=== PATIENT | female | born 1975 | race American Indian/Alaskan Native ===

== ENCOUNTER 2017-06-26 02:28 | Emergency (ER) | payer MEDICAID ==
[2017-06-26 03:18] VITALS: BP 143/90
== END 2017-06-26 05:30 | disposition left against medical advice (07) ==
LOC: ED 02:28
DX: R11.2 Nausea with vomiting, unspecified (principal); Z53.21 Procedure and treatment not carried out due to patient leaving prior to being seen by health care provider

== ENCOUNTER 2018-08-18 20:00 | Emergency (ER) | payer MEDICAID, OTHER ==
--- NOTE | 2018-08-18 20:36 | Emergency Department Report ---
Chief Complaint: High BP Stated Complaint: HBP/HEADACHE Time Seen by Provider: 08/18/18 20:32 - HPI History of Present Illness: Pt is c/o OMALLEY to both temples that began today Pt states pressure was elevated when she used an at home cuff no numbness, no unilateral weakness, no vision changes, no N/V chronic tingling in the bilateral hands, followed by neurology Pt has been out of her BP medication for the last two weeks she states she is on amlodipine 10 mg and hctz 25 mg MSE complete MSE screening note: Focused history and physical exam performed. ED Disposition for MSE Condition: Stable
[2018-08-18 21:02] LABS: Basophils # (Auto) 0.1 K/mm3 (0.0-0.1); Basophils % (Auto) 0.9 % (0.0-1.8); Eosinophils # (Auto) 0.2 K/mm3 (0.0-0.4); Eosinophils % (Auto) 2.7 % (0.0-4.3); Hematocrit 40.3 % (30.3-42.9); Hemoglobin 13.9 gm/dl (10.1-14.3); Lymphocytes # (Auto) 2.5 K/mm3 (1.2-5.4); Lymphocytes % (Auto) 28.5 % (13.4-35.0); Mean Corpuscular HGB Conc 35 % (30-34); Mean Corpuscular Volume 97 fl (79-97); Monocytes # (Auto) 0.7 K/mm3 (0.0-0.8); Monocytes % (Auto) 8.3 % (0.0-7.3); Platelet Count 292 K/mm3 (140-440); Red Blood Count 4.18 M/mm3 (3.65-5.03); Red Cell Distribution Width 13.6 % (13.2-15.2)
[2018-08-18 21:14] LABS: BUN/Creatinine Ratio 22; Blood Urea Nitrogen 13 mg/dL (7-17); Calcium 8.9 mg/dL (8.4-10.2); Hemolysis Index 10
[2018-08-18] MEDS ORDERED: NORVASC PO ONE (21:23)
[2018-08-18] MEDS ORDERED: IBUPROFEN PO ONE (21:23)
--- NOTE | 2018-08-18 21:35 | Emergency Department Report ---
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 She has a throbbing, squeezing headache to the front and middle of her head. She denies any blurry vision but has some photosensitivity/photophobia. She does have a history of migraine headaches and while she says that this is not necessarily consistent with a migraine, she does say that this is what her head feels like when her blood pressure is elevated. She says she has not had any blood pressure medications for the past 2 weeks that she has not been able to get into a primary care physician and get refills. She is on hydrochlorothiazide and amlodipine. She tried home remedies for her headache without any relief. Her primary care physician is a Dr. Jerry. She denies any tobacco or illicit drug use or abuse. ED Past Medical Hx - Past Medical History Hx Hypertension: Yes Hx Headaches / Migraines: Yes Hx Asthma: Yes - Surgical History Additional Surgical History: tubal ligation - Social History Smoking Status: Never Smoker Substance Use Type: None, Marijuana - Medications Home Medications: Home Medications Medication Instructions Recorded Confirmed Last Taken Type Ibuprofen [Motrin] 800 mg PO TID PRN #30 tablet 09/30/14 Unknown Rx Promethazine /Codeine 5 ml PO QHS PRN #1 udc 09/30/14 Unknown Rx [Phenergan/Codeine 6.25-10 mg/5Ml] amLODIPine [Norvasc] 10 mg PO DAILY #30 tablet 08/18/18 Unknown Rx hydroCHLOROthiazide [HCTZ] 25 mg PO DAILY #30 tablet 08/18/18 Unknown Rx ED Review of Systems ROS: Stated complaint: HBP/HEADACHE Other details as noted in HPI Comment: All other systems reviewed and negative Constitutional: denies: chills, fever Eyes: other (photophobia). denies: eye pain Respiratory: denies: cough, shortness of breath Cardiovascular: denies: chest pain, palpitations Gastrointestinal: denies: abdominal pain, vomiting Genitourinary: denies: dysuria, discharge Musculoskeletal: denies: back pain, arthralgia Skin: denies: rash, lesions Neurological: headache. denies: weakness, numbness Physical Exam - Physical Exam Vital Signs: Vital Signs 08/18/18 08/18/18 20:35 21:22 Temperature 98.2 F 98.2 F Pulse Rate 94 H 76 Respiratory 18 16 Rate Blood Pressure 194/114 Blood Pressure 166/76 [Left] O2 Sat by Pulse 99 100 Oximetry Physical Exam: GENERAL: The patient is well-developed well-nourished. HEENT: Normocephalic. Atraumatic. Patient has moist mucous membranes. EYES: Extraocular motions are intact. Pupils are equal and reactive to light bilaterally. No nystagmus. NECK: Supple. Trachea is midline. CHEST/LUNGS: Clear to auscultation. There is no respiratory distress noted. HEART/CARDIOVASCULAR: Regular. There is no tachycardia. There is no obvious murmur. ABDOMEN: Abdomen is soft, nontender. Patient has normal bowel sounds. There is no abdominal distention. SKIN: Skin is warm and dry. NEURO: The patient is awake, alert, and oriented. The patient is cooperative. The patient has no focal neurologic deficits. The patient has normal speech. Cranial nerves II through XII grossly intact. No pronator drift. No dysmetria. MUSCULOSKELETAL: There is no tenderness or deformity. There is no limitation range of motion. There is no evidence of acute injury. ED Course Vital Signs 08/18/18 08/18/18 20:35 21:22 Temperature 98.2 F 98.2 F Pulse Rate 94 H 76 Respiratory 18 16 Rate Blood Pressure 194/114 Blood Pressure 166/76 [Left] O2 Sat by Pulse 99 100 Oximetry ED Medical Decision Making - Lab Data Result diagrams: 08/18/18 20:43 08/18/18 20:43 - Medical Decision Making This patient presents to the emergency department with hypertension and a headache. She has been without her amlodipine and hydrochlorothiazide for a couple of weeks. She says that the headache feels like she has elevated blood pressure. She has no focal, motor or sensory deficits in her cranial nerves are intact. Labs have been unremarkable including a CBC and metabolic panel. Patient was given a dose of her Norvasc and a dose of ibuprofen. She was reevaluated multiple times for multiple hours and has greatly improved. The headache has resolved and her blood pressure has come down. For all these r easons, I did not feel that CT imaging of the head was necessary at this time. Prior to discharge, the patient was seen ambulatory throughout the emergency department and both appears and feels stable. She will be given a prescription for her blood pressure medications and has been given multiple referrals for primary care clinics. She will return to the ER for new worsening of her symptoms or any acute distress. - Differential Diagnosis migraine headache, tension headache, cluster headache Critical Care Time: No Critical care attestation.: If time is entered above; I have spent that time in minutes in the direct care of this critically ill patient, excluding procedure time. ED Disposition Clinical Impression: Noncompliance with medication regimen Hypertension Qualifiers: Hypertension type: essential hypertension Qualified Code(s): I10 - Essential (primary) hypertension Headache Qualifiers: Headache type: unspecified Headache chronicity pattern: unspecified pattern Intractability: not intractable Qualified Code(s): R51 - Headache Disposition: DC-01 TO HOME OR SELFCARE Is pt being admited?: No Condition: Stable Instructions: Acute Headache (ED), Hypertension (ED) Additional Instructions: Please follow up with a primary care physician. Restart your blood pressure medications. Try and stay away from foods that are high in salt and caffeinated products to help with her blood pressure. Keep a blood pressure log. Return to the emergency Department with any worsening of your symptoms or any acute distress. Prescriptions: amLODIPine [Norvasc] 10 mg PO DAILY #30 tablet hydroCHLOROthiazide [HCTZ] 25 mg PO DAILY #30 tablet Referrals: [facility] [Outside] - 3-5 Days [facility] [Outside] - 3-5 Days [facility] [Outside] - 3-5 Days [facility] [Outside] - 3-5 Days Time of Disposition: 23:52
[2018-08-18 23:50] VITALS: BP 130/69
== END 2018-08-19 00:07 | disposition home or self-care (01) ==
LOC: ED 20:00
DX: G43.909 Migraine, unspecified, not intractable, without status migrainosus (principal); I10 Essential (primary) hypertension; J45.909 Unspecified asthma, uncomplicated; F12.10 Cannabis abuse, uncomplicated; Z98.51 Tubal ligation status; Z88.8 Allergy status to other drugs, medicaments and biological substances
CPT/HCPCS: 36415; 80048; 85025; 99283

== ENCOUNTER 2019-04-26 18:39 | Emergency (ER) | payer SELFPAY ==
[2019-04-26] MEDS ORDERED: methylPREDNISolone Sod Succinate 125 MG/2 ML INJ IV ONE (21:59)
[2019-04-26] MEDS ORDERED: IPRATROPIUM 0.02% NEBU 2.5 ML IH ONE (21:59)
[2019-04-26] MEDS ORDERED: KETOROLAC 30 MG/1 ML INJ IV ONE (21:59)
[2019-04-26] MEDS ORDERED: ALBUTEROL 2.5 MG/3 ML NEBU IH ONE (21:59)
[2019-04-26] MEDS ORDERED: SODIUM CHLORIDE 0.9% 500 ML 500 ML IV ONE (22:00)
--- NOTE | 2019-04-26 22:02 | Emergency Department Report ---
ED General Adult HPI - General Chief complaint: Upper Respiratory Infection Stated complaint: CONGESTION/COUGH/MICHELLE Time Seen by Provider: 04/26/19 21:49 Source: patient, RN notes reviewed, old records reviewed Mode of arrival: Ambulatory Limitations: No Limitations - History of Present Illness Initial comments: This is a 43-year-old female. This patient is not known to this provider previously. She states that she cannot recall the name of her primary care doctor. She has a history of hypertension and asthma with no history of intubations or hospitalizations for asthma. She reports that she is not and has not delivered her given within the past 6 weeks. She states she has not smoked cigarettes for 3 weeks. She does have occasional exposure to secondhand cigarettes. The patient presents to the ER with a complaint of cough, wheezing, back pain, chest wall pain, shortness of breath, and clear mucous production. Cough and shortness of breath present for the past 3-4 days. Chest wall pain, flank pain and back pain is anterior, lateral, posterior, throbbing, intermittent, worsens with palpation, decreases with rest and range of motion, and does not radiate anywhere. It is present for about the past 24 hours. The patient denies DVT and pulmonary embolism risk factors. -: Gradual, days(s) Location: chest, back Quality: aching Improves with: other Worsens with: rest - Related Data Previous Rx's Medication Instructions Recorded Last Taken Type Ibuprofen [Motrin] 800 mg PO TID PRN #30 tablet 09/30/14 Unknown Rx Promethazine /Codeine 5 ml PO QHS PRN #1 udc 09/30/14 Unknown Rx [Phenergan/Codeine 6.25-10 mg/5Ml] amLODIPine 10 mg PO DAILY #30 tablet 08/18/18 Unknown Rx hydroCHLOROthiazide [HCTZ] 25 mg PO DAILY #30 tablet 08/18/18 Unknown Rx Albuterol Sulfate [Albuterol 0.63% 0.63 mg IH Q4HR PRN #2 ml 04/27/19 Unknown Rx NEBS] Albuterol Sulfate [Proair 90 mcg IH Q4HR PRN #2 aer.[email or web address] 04/27/19 Unknown Rx Respiclick] predniSONE [Deltasone] 40 mg PO QDAY #8 tab 04/27/19 Unknown Rx Allergies Allergy/AdvReac Type Severity Reaction Status Date / Time sumatriptan [From Imitrex] Allergy Rash Verified 11/20/13 15:25 sumatriptan succinate Allergy Rash Verified 11/20/13 15:25 [From Imitrex] ED Review of Systems ROS: Stated complaint: CONGESTION/COUGH/MICHELLE Other details as noted in HPI Constitutional: denies: fever Eyes: denies: eye discharge ENT: congestion Respiratory: cough, shortness of breath, wheezing Cardiovascular: denies: syncope Genitourinary: denies: urgency, dysuria Musculoskeletal: myalgia Skin: denies: lesions Neurological: weakness Psychiatric: anxiety ED Past Medical Hx - Past Medical History Hx Hypertension: Yes Hx Headaches / Migraines: Yes Hx Asthma: Yes - Surgical History Additional Surgical History: tubal ligation - Social History Smoking Status: Never Smoker Substance Use Type: None, Marijuana - Medications Home Medications: Home Medications Medication Instructions Recorded Confirmed Last Taken Type Ibuprofen [Motrin] 800 mg PO TID PRN #30 tablet 09/30/14 Unknown Rx Promethazine /Codeine 5 ml PO QHS PRN #1 udc 09/30/14 Unknown Rx [Phenergan/Codeine 6.25-10 mg/5Ml] amLODIPine 10 mg PO DAILY #30 tablet 08/18/18 Unknown Rx hydroCHLOROthiazide [HCTZ] 25 mg PO DAILY #30 tablet 08/18/18 Unknown Rx Albuterol Sulfate [Albuterol 0.63% 0.63 mg IH Q4HR PRN #2 ml 04/27/19 Unknown Rx NEBS] Albuterol Sulfate [Proair 90 mcg IH Q4HR PRN #2 aer.pow.ba 04/27/19 Unknown Rx Respiclick] predniSONE [Deltasone] 40 mg PO QDAY #8 tab 04/27/19 Unknown Rx ED Physical Exam - General Limitations: No Limitations General appearance: alert, in no apparent distress - Head Head exam: Present: atraumatic, normocephalic - Eye Eye exam: Present: normal appearance, EOMI. Absent: nystagmus - ENT ENT exam: Present: normal exam, normal orophraynx, mucous membranes moist, normal external ear exam - Neck Neck exam: Present: normal inspection, full ROM. Absent: tenderness, meningismus - Respiratory Respiratory exam: Present: respiratory distress, wheezes, rhonchi, chest wall tenderness - Cardiovascular Cardiovascular Exam: Present: regular rate, normal rhythm, normal heart sounds. Absent: bradycardia, tachycardia, irregular rhythm, systolic murmur, diastolic murmur, rubs, gallop - GI/Abdominal GI/Abdominal exam: Present: soft. Absent: distended, tenderness, guarding, rebound, rigid, pulsatile mass - Extremities Exam Extremities exam: Present: normal inspection, full ROM, other (2+ pulses noted in the bilateral upper, lower extremities. There is no long bone tenderness. Musculoskeletal compartments are soft. The pelvis is stable.). Absent: pedal edema, calf tenderness - Back Exam Back exam: Present: normal inspection. Absent: tenderness, CVA tenderness (R), CVA tenderness (L), paraspinal tenderness, vertebral tenderness - Neurological Exam Neurological exam: Present: alert, oriented X3, other (there is no facial droop. The tongue is midline. Extraocular movements are intact bilaterally. Patient speaking in full complete sentences. Shoulder shrug is intact bilaterally. Hearing is grossly intact bilaterally. Visual acuity intact to finger counting and color perception at a close distance. 5/5 strength 4 extremities. Sensation intact to light touch in 4 extremities.). Absent: motor sensory deficit - Psychiatric Psychiatric exam: Present: normal affect, normal mood - Skin Skin exam: Present: warm, dry, intact, normal color. Absent: rash ED Course Vital Signs 04/26/19 04/26/19 04/26/19 19:14 22:30 22:37 Temperature 98.4 F Pulse Rate 78 70 Pulse Rate [ 62 Bilateral] Respiratory 18 15 Rate Respiratory 27 H Rate [Bilateral ] Blood Pressure 170/100 143/78 O2 Sat by Pulse 99 99 Oximetry - Reevaluation(s) Reevaluation #1: 04/26/19 22:20 Differential diagnosis, including not limited to: Chest wall pain, thoracic pain, muscular back pain, bronchitis, costochondritis, pneumonia, reactive airway disease Assessment and plan: 43-year-old female with reproducible muscular pain, not tachycardic, not tachypneic, not hypoxic, no pulmonary embolism or DVT risk factors, low risk by well's criteria, perc negative with cough, wheezing, shortness of breath, likely experiencing bronchitis. We will treat her with albuterol, Atrovent, steroids, pain medicine, EKG unremarkable, x-ray the chest is pending. Reevaluation #2: 04/27/19 00:29 The patient is reassessed multiple times. She feels improved. Wheezing has essentially resolved. She is speaking to a business solution analyst in her room, and appears to be quite comfortable. ED Medical Decision Making - Lab Data Vital Signs 04/26/19 19:14 Temperature 98.4 F Pulse Rate 78 Respiratory 18 Rate Blood Pressure 170/100 O2 Sat by Pulse 99 Oximetry - EKG Data -: EKG Interpreted by Me EKG shows normal: sinus rhythm Rate: normal - EKG Data 04/26/19 22:22 The EKG shows a sinus arrhythmia, some 99 bpm, motion artifact, QTC is 445 ms, the EKG is not consistent with ST elevation myocardial infarction. - Radiology Data Radiology results: pending, report reviewed, image reviewed X-ray the chest is negative for acute disease. Critical care attestation.: If time is entered above; I have spent that time in minutes in the direct care of this critically ill patient, excluding procedure time. ED Disposition Clinical Impression: Bronchitis Disposition: DC-01 TO HOME OR SELFCARE Is pt being admited?: No Does the pt Need Aspirin: No Condition: Stable Instructions: Acute Bronchitis (ED) Additional Instructions: As we discussed, patient likely has bronchitis. Symptoms of bronchitis may last anywhere from a few days to a few weeks. Bronchitis is typically not dangerous or life-threatening. It typically self resolves. Recommend avoidance of exposure to tobacco and smoke products. Take the breathing medications as needed and directed. Patient may take [id number] Tylenol, 650 mg with food, every 4-6 hours, alternating with Motrin, 600 mg with food, every 6 hours as needed for pain. Follow-up with a primary care doctor within the next month. Take the breathing medications as directed, cough medication and steroids as directed. Patient may also purchase [id number] Flonase, and uses directed on the bottle, to assist with symptoms of nasal congestion. Return to the emergency room right away with new, worsened, different symptoms, or symptoms not present on the initial emergency room evaluation. Referrals: [facility] [Provider Group] - 3-5 Days [facility] [Provider Group] - 3-5 Days
[2019-04-26] MEDS ORDERED: MAGNESIUM SULFATE 2 GM/50 ML BAG IV ONE (22:21)
--- NOTE | 2019-04-26 22:37 | XRay Report ---
CHEST 2 VIEWS INDICATION / CLINICAL INFORMATION: back pain chest wal pain cough sob. COMPARISON: None available. FINDINGS: SUPPORT DEVICES: None. HEART / MEDIASTINUM: No significant abnormality. LUNGS / PLEURA: No significant pulmonary or pleural abnormality. No pneumothorax. ADDITIONAL FINDINGS: No significant additional findings. IMPRESSION: 1. No acute findings. No evidence of pneumonia. Signer Name: Xin Doe MD Signed: 04/26/2019 10:33 PM Workstation Name: [id number]
[2019-04-27 00:59] VITALS: BP 150/75
== END 2019-04-27 01:25 | disposition home or self-care (01) ==
LOC: ED 18:39
DX: J40 Bronchitis, not specified as acute or chronic (principal); G43.909 Migraine, unspecified, not intractable, without status migrainosus; I10 Essential (primary) hypertension; F12.10 Cannabis abuse, uncomplicated; Z98.51 Tubal ligation status; Z88.8 Allergy status to other drugs, medicaments and biological substances
CPT/HCPCS: 71046; 93005; 93010; 94644; 96365; 96375; 99283; J1885; J2930; J3475; J7040

== ENCOUNTER 2019-07-08 07:57 | Emergency (ER) | payer SELFPAY ==
--- NOTE | 2019-07-08 10:25 | XRay Report ---
CHEST 1 VIEW INDICATION: Chest Pain. COMPARISON: 04/26/2019 FINDINGS: Support devices: None. Heart: Within normal limits. Lungs/Pleura: No acute air space or interstitial disease. Additional findings: None. IMPRESSION: Normal AP chest Signer Name: Gregory Read Jr, MD Signed: 07/08/2019 10:20 AM Workstation Name: [id number]
[2019-07-08] MEDS ORDERED: IPRATROPIUM 0.02% NEBU 2.5 ML IH ONE (10:34)
[2019-07-08] MEDS ORDERED: ALBUTEROL 2.5 MG/3 ML NEBU IH ONE (10:34)
[2019-07-08] MEDS ORDERED: predniSONE 20 MG TAB PO ONE (10:34)
[2019-07-08] MEDS ORDERED: IBUPROFEN 800 MG TAB PO ONE (10:35)
[2019-07-08] MEDS ORDERED: BENZONATATE 100 MG CAP PO ONE (10:35)
--- NOTE | 2019-07-08 11:05 | Emergency Department Report ---
- General Chief Complaint: Upper Respiratory Infection Stated Complaint: BODY PAIN/BAD COUGH/MICHELLE Time Seen by Provider: 07/08/19 10:33 Source: EMS Mode of arrival: Ambulatory Limitations: No Limitations - History of Present Illness Initial Comments: This is a 43-year-old female nontoxic, well nourished in appearance, no acute signs of distress presents to the ED with c/o of productive cough, fever, chills, body aches, rhinorrhea, nasal congestion x2 days. Patient stated has wheezing that causes SOB. Patient describes productive cough as yellow mucus production. Patient denies any sick contact. Patient denies any recent travels, long car, recent hospital stays. Patient denies any calf pain or calf tenderness. Patient denies any chest pain, nausea, vomiting, hemoptysis, numbness, tingling, headache or stiff neck. Patient stated allergies to Bactrim with no significant past medical history. MD Complaint: cough, rhinorrhea, nasal congestion, other (wheezing, SOB) -: days(s) (2) Consistency: constant Improves With: nothing Worsens With: nothing Associated Symptoms: fever, chills, rhinorrhea, nasal congestion, cough, shortness of breath. denies: myalgias, diaphoresis, headache, sore throat, stiff neck, chest pain, abdominal pain, nausea, vomiting, diarrhea, dysuria, rash, confusion, right sweats, weight loss, epistaxis, hoarseness, ear pain Treatments Prior to Arrival: none - Related Data Previous Rx's Medication Instructions Recorded Last Taken Type Ibuprofen [Motrin] 800 mg PO TID PRN #30 tablet 09/30/14 Unknown Rx Promethazine /Codeine 5 ml PO QHS PRN #1 udc 09/30/14 Unknown Rx [Phenergan/Codeine 6.25-10 mg/5Ml] amLODIPine 10 mg PO DAILY #30 tablet 08/18/18 Unknown Rx hydroCHLOROthiazide [HCTZ] 25 mg PO DAILY #30 tablet 08/18/18 Unknown Rx Albuterol Sulfate [Albuterol 0.63% 0.63 mg IH Q4HR PRN #2 ml 04/27/19 Unknown Rx NEBS] Albuterol Sulfate [Proair 90 mcg IH Q4HR PRN #2 aer.pow.ba 04/27/19 Unknown Rx Respiclick] Benzonatate [Tessalon Perles] 100 mg PO Q8HR PRN #30 capsule 04/27/19 Unknown Rx Fluticasone [Flonase] 1 spray NS QDAY #1 bottle 04/27/19 Unknown Rx predniSONE [Deltasone] 40 mg PO QDAY #8 tab 04/27/19 Unknown Rx Albuterol INH(or & Nicu Only) 2 puff IH QID PRN #8.5 gram 07/08/19 Unknown Rx [ProAir HFA Inhaler] Benzonatate [Tessalon Perles] 100 mg PO Q8HR PRN #20 capsule 07/08/19 Unknown Rx Ibuprofen [Motrin] 600 mg PO Q8H PRN #20 tablet 07/08/19 Unknown Rx Oseltamivir [Tamiflu] 75 mg PO BID #14 cap 07/08/19 Unknown Rx Allergies Allergy/AdvReac Type Severity Reaction Status Date / Time sumatriptan [From Imitrex] Allergy Rash Verified 11/20/13 15:25 sumatriptan succinate Allergy Rash Verified 11/20/13 15:25 [From Imitrex] ED Review of Systems ROS: Stated complaint: BODY PAIN/BAD COUGH/MICHELLE Other details as noted in HPI Constitutional: chills, fever Eyes: denies: eye pain, eye discharge, vision change ENT: congestion. denies: ear pain, throat pain Respiratory: cough, wheezing. denies: shortness of breath Cardiovascular: denies: chest pain, palpitations Endocrine: no symptoms reported Gastrointestinal: denies: abdominal pain, nausea, diarrhea Genitourinary: denies: urgency, dysuria, discharge Musculoskeletal: denies: back pain, joint swelling, arthralgia Skin: denies: rash, lesions Neurological: denies: headache, weakness, paresthesias Psychiatric: denies: anxiety, depression Hematological/Lymphatic: denies: easy bleeding, easy bruising ED Past Medical Hx - Past Medical History Previous Medical History?: Yes Hx Hypertension: Yes Hx Headaches / Migraines: Yes Hx Asthma: Yes - Surgical History Past Surgical History?: Yes Additional Surgical History: tubal ligation - Social History Smoking Status: Never Smoker - Medications Home Medications: Home Medications Medication Instructions Recorded Confirmed Last Taken Type Ibuprofen [Motrin] 800 mg PO TID PRN #30 tablet 09/30/14 Unknown Rx Promethazine /Codeine 5 ml PO QHS PRN #1 udc 09/30/14 Unknown Rx [Phenergan/Codeine 6.25-10 mg/5Ml] amLODIPine 10 mg PO DAILY #30 tablet 08/18/18 Unknown Rx hydroCHLOROthiazide [HCTZ] 25 mg PO DAILY #30 tablet 08/18/18 Unknown Rx Albuterol Sulfate [Albuterol 0.63% 0.63 mg IH Q4HR PRN #2 ml 04/27/19 Unknown Rx NEBS] Albuterol Sulfate [Proair 90 mcg IH Q4HR PRN #2 aer.pow.ba 04/27/19 Unknown Rx Respiclick] Benzonatate [Tessalon Perles] 100 mg PO Q8HR PRN #30 capsule 04/27/19 Unknown Rx Fluticasone [Flonase] 1 spray NS QDAY #1 bottle 04/27/19 Unknown Rx predniSONE [Deltasone] 40 mg PO QDAY #8 tab 04/27/19 Unknown Rx Albuterol INH(or & Nicu Only) 2 puff IH QID PRN #8.5 gram 07/08/19 Unknown Rx [ProAir HFA Inhaler] Benzonatate [Tessalon Perles] 100 mg PO Q8HR PRN #20 capsule 07/08/19 Unknown Rx Ibuprofen [Motrin] 600 mg PO Q8H PRN #20 tablet 07/08/19 Unknown Rx Oseltamivir [Tamiflu] 75 mg PO BID #14 cap 07/08/19 Unknown Rx ED Physical Exam - General Limitations: No Limitations General appearance: alert, in no apparent distress - Head Head exam: Present: atraumatic, normocephalic - Eye Eye exam: Present: normal appearance - ENT ENT exam: Present: normal exam, normal orophraynx - Neck Neck exam: Present: normal inspection, full ROM. Absent: tenderness, meningismus, lymphadenopathy - Respiratory Respiratory exam: Present: wheezes. Absent: respiratory distress, rales, rhonchi, stridor, chest wall tenderness, accessory muscle use, decreased breath sounds, prolonged expiratory - Cardiovascular Cardiovascular Exam: Present: regular rate, normal rhythm, tachycardia, normal heart sounds. Absent: irregular rhythm, systolic murmur, diastolic murmur, rubs, gallop - Extremities Exam Extremities exam: Present: normal inspection, full ROM - Back Exam Back exam: Present: normal inspection, full ROM. Absent: tenderness, CVA tenderness (R), CVA tenderness (L), muscle spasm, paraspinal tenderness, vertebral tenderness, rash noted - Neurological Exam Neurological exam: Present: alert, oriented X3, normal gait - Psychiatric Psychiatric exam: Present: normal affect, normal mood - Skin Skin exam: Present: warm, dry, intact, normal color. Absent: rash ED Course Vital Signs 07/08/19 07/08/19 08:08 10:54 Temperature 99.4 F Pulse Rate 111 H Pulse Rate [ 80 Right Lower Lobe] Respiratory 18 Rate Respiratory 18 Rate [Right Lower Lobe] Blood Pressure 128/79 O2 Sat by Pulse 95 Oximetry - Reevaluation(s) Reevaluation #1: 07/08/19 12:24 Patient is speaking in full sentences with no signs of distress noted. ED Medical Decision Making - Medical Decision Making This is a 43-year-old female that presents with flu like symptoms. Patient is stable and was examined by me. SHARON and HEART score 0 pints. Wells criteria for DVT/SVT/PE 0 points. Chest x-ray has been obtained and dictated by radiologist with normal exam. Patient is notified of x-ray results with no questions noted. Patient received treatment in the ER if symptoms of wheezing and shortness of breath has subsided. Denies any chest pain at discharge. Patient will be treated with tamiflu.. Patient was instructed to increase hydration, rest and take Motrin for fever episodes. Patient received motrin and tesslone perrls in the ED. Vitals stable. Patient is nonfebrile and normal heart rate. Patient was instructed Follow-up with a primary care doctor in 3-5 days or if symptoms worsen and continue return to emergency room as soon as possible. At time time of discharge, the patient does not seem toxic or ill in appearance. No acute signs of distress noted. Patient agrees to discharge treatment plan of care. No further questions noted by the patient. Critical care attestation.: If time is entered above; I have spent that time in minutes in the direct care of this critically ill patient, excluding procedure time. ED Disposition Clinical Impression: Influenza Disposition: DC-01 TO HOME OR SELFCARE Is pt being admited?: No Does the pt Need Aspirin: No Condition: Stable Instructions: Influenza (ED), Oseltamivir (By mouth) Additional Instructions: Follow-up with a primary care doctor in 3-5 days or if symptoms worsen and continue return to emergency room as soon as possible. Increased rest, hydration, and take Motrin/Tylenol as prescribed for fever episode. Prescriptions: Ibuprofen [Motrin] 600 mg PO Q8H PRN #20 tablet PRN Reason: Pain Albuterol INH(or & Nicu Only) [ProAir HFA Inhaler] 2 puff IH QID PRN #8.5 gram PRN Reason: Shortness Of Breath Oseltamivir [Tamiflu] 75 mg PO BID #14 cap Benzonatate [Tessalon Perles] 100 mg PO Q8HR PRN #20 capsule PRN Reason: Cough Referrals: PRIMARY CAREMD [Primary Care Provider] - 3-5 Days BIRD RUSSELL MD [Staff Physician] - 3-5 Days [facility] [Outside] - 3-5 Days Forms: Work/School Release Form(ED)
[2019-07-08 14:19] VITALS: BP 124/78
== END 2019-07-08 14:17 | disposition home or self-care (01) ==
LOC: ED 07:57
DX: J11.1 Influenza due to unidentified influenza virus with other respiratory manifestations (principal); I10 Essential (primary) hypertension; G43.909 Migraine, unspecified, not intractable, without status migrainosus; J45.909 Unspecified asthma, uncomplicated; Z98.51 Tubal ligation status; Z79.899 Other long term (current) drug therapy; Z88.8 Allergy status to other drugs, medicaments and biological substances
CPT/HCPCS: 71045; 94640; 99283; J7512; 94644

== ENCOUNTER 2021-01-10 10:48 | Emergency (ER) | payer SELFPAY ==
[2021-01-10 12:33] VITALS: BP 184/96
--- NOTE | 2021-01-10 13:35 | Emergency Department Report ---
ED General Adult HPI - General Chief complaint: Pain General Stated complaint: FACIAL PAINS Time Seen by Provider: 01/10/21 13:34 Source: patient Mode of arrival: Ambulatory Limitations: No Limitations - History of Present Illness Initial comments: Patient is a 45-year-old female presents emergency room with complaints of intermittent facial pain that began approximately 6 weeks ago but has worsened in the last few days. She states it feels like sharp stabbing tingling pain around the right lip that goes up into the face. She denies any facial swe lling, facial droop, vision changes, facial weakness, headache, vomiting, chills, gait disturbance, speech disturbance. She states her pain is worse with movement. She states that she does not like to have anything touch the right side of the face. Past medical history of hypertension, asthma, and migraines. She states that she is out of her blood pressure medication, she states that she supposed to be taking amlodipine 10 mg daily and hydrochlorothiazide 25 mg daily. She has an allergy to Imitrex. - Related Data Previous Rx's Medication Instructions Recorded Last Taken Type Ibuprofen [Motrin] 800 mg PO TID PRN #30 tablet 09/30/14 Unknown Rx Promethazine /Codeine 5 ml PO QHS PRN #1 udc 09/30/14 Unknown Rx [Phenergan/Codeine 6.25-10 mg/5Ml] Albuterol Sulfate [Albuterol 0.63% 0.63 mg IH Q4HR PRN #2 ml 04/27/19 Unknown Rx NEBS] Albuterol Sulfate [Proair 90 mcg IH Q4HR PRN #2 aer.pow.ba 04/27/19 Unknown Rx Respiclick] Benzonatate [Tessalon Perles] 100 mg PO Q8HR PRN #30 capsule 04/27/19 Unknown Rx Fluticasone [Flonase] 1 spray NS QDAY #1 bottle 04/27/19 Unknown Rx predniSONE [Deltasone] 40 mg PO QDAY #8 tab 04/27/19 Unknown Rx Albuterol Mdi (or & Nicu Only) 2 puff IH QID PRN #8.5 gram 07/08/19 Unknown Rx [ProAir HFA Inhaler] Benzonatate [Tessalon Perles] 100 mg PO Q8HR PRN #20 capsule 07/08/19 Unknown Rx Ibuprofen [Motrin] 600 mg PO Q8H PRN #20 tablet 07/08/19 Unknown Rx Oseltamivir [Tamiflu] 75 mg PO BID #14 cap 07/08/19 Unknown Rx Gabapentin 100 mg PO TID #30 cap 01/10/21 Unknown Rx Naproxen [EC-Naprosyn] 375 mg PO BID #20 tablet.dr 01/10/21 Unknown Rx Prednisone [predniSONE 10 mg 10 mg PO .TAPER #1 tab.ds.pk 01/10/21 Unknown Rx (6-Day Pack, 21 Tabs)] amLODIPine 10 mg PO DAILY #30 tablet 01/10/21 Unknown Rx hydroCHLOROthiazide [HCTZ] 25 mg PO DAILY #30 tablet 01/10/21 Unknown Rx Allergies Allergy/AdvReac Type Severity Reaction Status Date / Time sumatriptan [From Imitrex] Allergy Rash Verified 11/20/13 15:25 sumatriptan succinate Allergy Rash Verified 11/20/13 15:25 [From Imitrex] ED Review of Systems ROS: Stated complaint: FACIAL PAINS Other details as noted in HPI Comment: All other systems reviewed and negative ED Past Medical Hx - Past Medical History Previous Medical History?: Yes Hx Hypertension: Yes Hx Headaches / Migraines: Yes Hx Asthma: Yes - Surgical History Past Surgical History?: Yes Additional Surgical History: tubal ligation - Social History Smoking Status: Never Smoker - Medications Home Medications: Home Medications Medication Instructions Recorded Confirmed Last Taken Type Ibuprofen [Motrin] 800 mg PO TID PRN #30 tablet 09/30/14 Unknown Rx Promethazine /Codeine 5 ml PO QHS PRN #1 udc 09/30/14 Unknown Rx [Phenergan/Codeine 6.25-10 mg/5Ml] Albuterol Sulfate [Albuterol 0.63% 0.63 mg IH Q4HR PRN #2 ml 04/27/19 Unknown Rx NEBS] Albuterol Sulfate [Proair 90 mcg IH Q4HR PRN #2 aer.pow.ba 04/27/19 Unknown Rx Respiclick] Benzonatate [Tessalon Perles] 100 mg PO Q8HR PRN #30 capsule 04/27/19 Unknown Rx Fluticasone [Flonase] 1 spray NS QDAY #1 bottle 04/27/19 Unknown Rx predniSONE [Deltasone] 40 mg PO QDAY #8 tab 04/27/19 Unknown Rx Albuterol Mdi (or & Nicu Only) 2 puff IH QID PRN #8.5 gram 07/08/19 Unknown Rx [ProAir HFA Inhaler] Benzonatate [Tessalon Perles] 100 mg PO Q8HR PRN #20 capsule 07/08/19 Unknown Rx Ibuprofen [Motrin] 600 mg PO Q8H PRN #20 tablet 07/08/19 Unknown Rx Oseltamivir [Tamiflu] 75 mg PO BID #14 cap 07/08/19 Unknown Rx Gabapentin 100 mg PO TID #30 cap 01/10/21 Unknown Rx Naproxen [EC-Naprosyn] 375 mg PO BID #20 tablet.dr 01/10/21 Unknown Rx Prednisone [predniSONE 10 mg 10 mg PO .TAPER #1 tab.ds.pk 01/10/21 Unknown Rx (6-Day Pack, 21 Tabs)] amLODIPine 10 mg PO DAILY #30 tablet 01/10/21 Unknown Rx hydroCHLOROthiazide [HCTZ] 25 mg PO DAILY #30 tablet 01/10/21 Unknown Rx ED Physical Exam - General Limitations: No Limitations General appearance: alert, in no apparent distress - Head Head exam: Present: atraumatic, other (ttp with palpation of the right face overlying the maxillary region and right upper lip, no edema, no erythema, no facial droop, no ttp overlying the temporal artery, no sinus ttp) - Eye Eye exam: Present: normal appearance, PERRL, EOMI. Absent: conjunctival injection, periorbital swelling, periorbital tenderness Pupils: Present: normal accommodation - ENT ENT exam: Present: normal orophraynx, mucous membranes moist, other (no signs of dental caries or abscess) - Neurological Exam Neurological exam: Present: alert, oriented X3, CN II-XII intact, normal gait. Absent: motor sensory deficit - Psychiatric Psychiatric exam: Present: normal affect, normal mood - Skin Skin exam: Present: warm, dry, intact ED Course Vital Signs 01/10/21 12:32 Temperature 97.7 F Pulse Rate 66 Respiratory 18 Rate Blood Pressure 184/96 O2 Sat by Pulse 100 Oximetry ED Medical Decision Making - Medical Decision Making Patient is a 45-year-old female presents emergency room with complaints of intermittent facial pain that began approximately 6 weeks ago but has worsened in the last few days. She states it feels like sharp stabbing tingling pain around the right lip that goes up into the face. She denies any facial swelling, facial droop, vision changes, facial weakness, headache, vomiting, chills, gait disturbance, speech disturbance. She states her pain is worse with movement. She states that she does not like to have anything touch the right side of the face. Past medical history of hypertension, asthma, and migraines. She states that she is out of her blood pressure medication, she states that she supposed to be taking amlodipine 10 mg daily and hydrochlorothiazide 25 mg daily. She has an allergy to Imitrex. Vitals with elevated blood pressure, secondary to patient being out of her medication, patient given refills, discussed the importance of primary care follow-up and lifestyle modifications. on exam: ttp with palpation of the right face overlying the maxillary region and right upper lip, no edema, no erythema, no facial droop, no ttp overlying the temporal artery, no sinus ttp. Symptoms could be related to trigeminal neuralgia versus neuropathy. Symptoms have been ongoing for 6 weeks. Will have patient follow-up with outpatient neurology. Patient given prescription for medications. Advised patient Please take medication as prescribed. Follow-up with your primary care doctor. Follow-up with a neurologist. Return to emergency room for any new or worsening symptoms. Critical care attestation.: If time is entered above; I have spent that time in minutes in the direct care of this critically ill patient, excluding procedure time. ED Disposition Clinical Impression: Facial pain, Elevated blood pressure reading Disposition: - TO HOME OR SELFCARE Is pt being admited?: No Does the pt Need Aspirin: No Condition: Stable Instructions: Neuropathic Pain, Trigeminal Neuralgia, Managing Your Hypertension Additional Instructions: Please take medication as prescribed. Follow-up with your primary care doctor. Follow-up with a neurologist. Return to emergency room for any new or worsening symptoms. Prescriptions: amLODIPine 10 mg PO DAILY #30 tablet Naproxen [EC-Naprosyn] 375 mg PO BID #20 tablet. Gabapentin 100 mg PO TID #30 cap hydroCHLOROthiazide [HCTZ] 25 mg PO DAILY #30 tablet Prednisone [predniSONE 10 mg (6-Day Pack, 21 Tabs)] 10 mg PO .TAPER #1 tab.ds.pk Referrals: BIRD RUSSELL MD [Staff Physician] - 3-5 Days [facility] [Provider Group] - 3-5 Days KAMRAN ARIZMENDI MD [Referring] - 3-5 Days Forms: Work/School Release Form(ED) Time of Disposition: 13:39 Print Language: BAHAMIAN
== END 2021-01-10 13:59 | disposition home or self-care (01) ==
LOC: ED 10:48
DX: R51.9 Headache, unspecified (principal); R03.0 Elevated blood-pressure reading, without diagnosis of hypertension; I10 Essential (primary) hypertension; J45.909 Unspecified asthma, uncomplicated; Z79.899 Other long term (current) drug therapy; Z88.8 Allergy status to other drugs, medicaments and biological substances; Z98.51 Tubal ligation status
CPT/HCPCS: 99281